=== PATIENT | male | born 1990 | race African-American/Black ===

== ENCOUNTER 2016-12-06 19:02 | Emergency (ER) | payer OTHER ==
--- NOTE | 2016-12-06 19:06 | PDOC ---
Rapid Medical Evaluation Medical Evaluation: 12/06/16 19:05 26 yo M c/o right sided sore throat x2d. Pt was given zithromax today. Took (2) tabs from [facility] today. Denies diff swallowing. Denies sob, congestion, co. Rapid strep ordered and sent.
[2016-12-06 19:07] VITALS: BP 153/81; PULSE 109; TEMP 99.3; BMI 33.5
--- NOTE | 2016-12-06 20:14 | PDOC ---
History of Present Illness - General Chief Complaint: Sore Throat Stated Complaint: COLD SYMPTOMS Time Seen by Provider: 12/06/16 19:31 History Source: Patient Exam Limitations: No Limitations - History of Present Illness Initial Comments: 12/06/16 20:14 CHIEF COMPLAINT: Throat pain HISTORY OF PRESENT ILLNESS: This is a 26 year old male with frequent episodes of strep pharyngitis who presents complaining of two days of throat pain, painful swallowing, chills, and muffled voice. He is able to swallow his own saliva. He denies difficulty breathing, but does feel that he is "going to choke " when laying flat. He was prescribed azithromycin and took the first dose today without improvement. V/s on arrival are notable for pulse of 109. REVIEW OF SYSTEMS: GENERAL/CONSTITUTIONAL: Chills, subjective fever. No weakness. No weight change. HEAD, EYES, EARS, NOSE AND THROAT: See HPI. CARDIOVASCULAR: No chest pain or palpitations. RESPIRATORY: No cough, wheezing, or shortness of breath. GASTROINTESTINAL: No nausea, vomiting, diarrhea or constipation. GENITOURINARY: No dysuria, frequency, or change in urination. MUSCULOSKELETAL: No joint or muscle swelling or pain. No neck or back pain. SKIN: No rash or easy bruising. NEUROLOGIC: No headache, vertigo, loss of consciousness, or loss of sensation. PSYCHIATRIC: No depression or anxiety. ENDOCRINE: No increased thirst. No abnormal weight change. HEMATOLOGIC/LYMPHATIC: No anemia, easy bleeding, or history of blood clots. ALLERGIC/IMMUNOLOGIC: No hives or skin allergy. No latex allergy. PHYSICAL EXAM: GENERAL: The patient is awake, alert, and fully oriented, in no acute distress. HEAD: Normal with no signs of trauma. ENT: Tonsils 4+ and erythematous, nearly touching. Uvula midline. Cervical adenopathy. Hot potato voice. No drooling or stridor. Pupils equal, round and reactive to light, extraocular movements intact, sclera anicteric, conjunctiva clear. Neck supple. LUNGS: Clear to auscultation bilaterally. Normal excursion. No respiratory distress or use of accessory muscles. CV: RRR, S1/S2, no MRG. Cap refill < 2 sec. ABDOMEN: Soft, non-distended, non-tender. EXTREMITIES: Normal range of motion, no edema. NEUROLOGICAL: Normal speech, normal gait. CN II-XII grossly intact. PSYCH: Normal mood, normal affect. SKIN: Warm, dry, normal turgor, no rashes or lesions noted. Past History - Past Medical History Allergies/Adverse Reactions: Allergies Allergy/AdvReac Type Severity Reaction Status Date / Time No Known Allergies Allergy Verified 12/06/16 19:06 Home Medications: Ambulatory Orders Clindamycin [Cleocin -] 300 mg PO Q6HPO #28 capsule 12/06/16 Gabapentin [Neurontin -] 100 mg PO Q8H 12/06/16 Ibuprofen [Motrin -] 600 mg PO QID #30 tablet 12/06/16 - Psycho/Social/Smoking Cessation Hx Suicidal Ideation: No Smoking History: Never smoked Information on smoking cessation initiated: No *Physical Exam - Vital Signs Last Vital Signs Temp Pulse Resp BP Pulse Ox 99.3 F 109 H 18 153/81 98 12/06/16 19:04 12/06/16 19:04 12/06/16 19:04 12/06/16 19:04 12/06/16 19:04 ED Treatment Course - LABORATORY CBC & Chemistry Diagram: 12/06/16 21:00 12/06/16 21:00 Medical Decision Making - Medical Decision Making 12/06/16 21:12 A/P: 26 year old male with pharyngitis; tonsils nearly touching, voice muffled. 1. Rapid strep is positive 2. Will place IV; give fluids, Decadron 10mg IVP, Toradol 30mg IVP, Clindamycin 600mg IVPB 3. CT soft tissue neck to r/o CHUTE TENDER 4. Re-assess 12/06/16 22:47 CT reviewed: prominent tonsils; no abscess or collection identified. Patient is feeling better and is phonating normally. Feels comfortable going home and following up with ENT. Return precautions reviewed. *DC/Admit/Observation/Transfer Diagnosis at time of Disposition: Strep pharyngitis - Discharge Dispostion Disposition: HOME Condition at time of disposition: Improved Admit: No - Prescriptions Prescriptions: Clindamycin [Cleocin -] 300 mg PO Q6HPO #28 capsule Ibuprofen [Motrin -] 600 mg PO QID #30 tablet - Referrals Referrals: Darius Martinez MD [Staff Physician] - Call tomorrow - Patient Instructions Printed Discharge Instructions: DI for Pharyngitis/Tonsillopharyngitis -- Adult Additional Instructions: -Rest and stay well-hydrated -Take ibuprofen as prescribed for pain and inflammation and clindamycin as prescribed for throat infection -Follow up with ENT as discussed -Return here for difficulty breathing, inability to swallow your own saliva, or any other concerning symptoms - Post Discharge Activity Work/School Note: Back to Work
[2016-12-06] MEDS ORDERED: DEXAMETHASONE SOD PHOSPHATE 10 MG/1 ML VIAL IVPUSH ONE (20:21)
[2016-12-06] MEDS ORDERED: SODIUM CHLORIDE 1,000 ML IV STA (20:21)
[2016-12-06] MEDS ORDERED: CLINDAMYCIN 600MG PREMIX IVPB 50 ML IVPB ONE (20:21)
[2016-12-06] MEDS ORDERED: KETOROLAC TROMETHAMINE 30 MG/1 ML VIAL IVPUSH ONE (20:21)
[2016-12-06] MEDS ORDERED: DEXAMETHASONE SOD PHOSPHATE 10 MG/1 ML VIAL ONE (20:39)
[2016-12-06] MEDS ORDERED: KETOROLAC TROMETHAMINE 30 MG/1 ML VIAL ONE (20:40)
[2016-12-06 21:09] LABS: BASOPHIL 0.2 % (0-2.0); EOSINOPHIL 0.4 % (0-4.5); MCH 26.6 pg (25.7-33.7); MCHC 31.9 g/dl (32.0-35.9); MEAN CELL VOLUME 83.3 fl (80-96); MEAN PLT VOLUME 9.3 fl (7.5-11.1); NEUTROPHILS 68.7 % (42.8-82.8); PLATELET COUNT 185 K/MM3 (134-434); RDW 14.2 % (11.9-15.9); WHITE BLOOD COUNT 11.6 K/mm3 (4.0-10.0)
[2016-12-06 21:38] LABS: CALCIUM 8.7 mg/dL (8.5-10.1); CREATININE 0.7 mg/dL (0.7-1.3)
== END 2016-12-06 23:00 | disposition home or self-care (01) ==
LOC: JERFT 19:02
PROC: 3E0337Z Introduction of Electrolytic and Water Balance Substance into Peripheral Vein, Percutaneous Approach (ICD-10-PCS; principal; 2016-12-06)
PROC: 3E03329 Introduction of Other Anti-infective into Peripheral Vein, Percutaneous Approach (ICD-10-PCS; 2016-12-06)
PROC: 3E0333Z Introduction of Anti-inflammatory into Peripheral Vein, Percutaneous Approach (ICD-10-PCS; 2016-12-06)
PROC: 3E0333Z Introduction of Anti-inflammatory into Peripheral Vein, Percutaneous Approach (ICD-10-PCS; 2016-12-06)
DX: J02.0 Streptococcal pharyngitis (principal); B95.0 Streptococcus, group A, as the cause of diseases classified elsewhere
CPT/HCPCS: 36415; 70491-TC; 80048; 85025; 87070; 87430; 99281-25

== ENCOUNTER 2018-12-08 03:02 | Emergency (ER) | payer SELFPAY ==
--- NOTE | 2018-12-08 03:16 | PDOC ---
History of Present Illness - General Stated Complaint: THOAT PAIN Time Seen by Provider: 12/08/18 03:16 History Source: Patient Exam Limitations: No Limitations - History of Present Illness Initial Comments: 12/08/18 03:55 Best Contact: PCP:Denies Pmhx: 0 Pshx: 0 Allergies: NKDA FH: 0 Social Hx: Cigarettes/ 0 Alcohol/ Social Drugs/ 0 28-year-old male presents to the ER complaining of a sore throat 3 days without fever, chills, nausea/vomiting, dizziness, lightheadedness, facial pains , rhinorrhea, nasal congestion, earaches, difficulty swallowing/eating, neck pain/stiffness, back pains, chest pain, shortness of breath, abdominal pains. Patient states he did not take anything for pain. There are no alleviating or exacerbating factors. Past History - Past Medical History Allergies/Adverse Reactions: Allergies Allergy/AdvReac Type Severity Reaction Status Date / Time No Known Allergies Allergy Verified 12/08/18 03:43 Home Medications: Ambulatory Orders NK [No Known Home Medication] 12/08/18 - Suicide/Smoking/Psychosocial Hx Smoking History: Never smoked Review of Systems - Review of Systems Able to Perform ROS?: Yes Comments:: 12/08/18 04:02 CONSTITUTIONAL: Absent: fever, chills, diaphoresis, generalized weakness, malaise, loss of appetite HEENT: +throat pain Absent: rhinorrhea, nasal congestion,throat swelling, difficulty swallowing, mouth swelling, ear pain, eye pain, visual Changes CARDIOVASCULAR: Absent: chest pain, loss of consciousness, palpitations, irregular heart rate, peripheral edema RESPIRATORY: Absent: cough, shortness of breath, dyspnea with exertion, orthopnea, wheezing, stridor, hemoptysis GASTROINTESTINAL: Absent: abdominal pain, abdominal distension, nausea, vomiting, diarrhea, constipation, melena, hematochezia GENITOURINARY: Absent: dysuria, frequency, urgency, hesitancy, hematuria, flank pain, genital pain MUSCULOSKELETAL: Absent: myalgia, arthralgia, joint swelling SKIN: Absent: rash, itching, pallor Is the patient limited Scottish proficient: No *Physical Exam - Physical Exam Comments: 12/08/18 04:04 GENERAL: Well developed, well nourished. Awake and alert. No acute distress. HEENT: B/L tonsillar erythema with exudates Normocephalic, atraumatic. PERRLA, EOMI. No conjunctival pallor. Sclera are non- icteric. Moist mucous membranes. Oropharynx is clear. NECK: Supple. Full ROM. No JVD. Carotid pulses 2+ and symmetric, without bruits. No thyromegaly. No lymphadenopathy. CARDIOVASCULAR: Regular rate and rhythm. No murmurs, rubs, or gallops. Distal pulses are 2+ and symmetric. PULMONARY: No evidence of respiratory distress. Lungs clear to auscultation bilaterally. No wheezing, rales or rhonchi. ABDOMINAL: Soft. Non-tender. Non-distended. No rebound or guarding. No organomegaly. Normoactive bowel sounds. MUSCULOSKELETAL Normal range of motion at all joints. No bony deformities or tenderness. No CVA tenderness. EXTREMITIES: No cyanosis. No clubbing. No edema. No calf tenderness. SKIN: Warm and dry. Normal capillary refill. No rashes. No jaundice. *DC/Admit/Observation/Transfer Diagnosis at time of Disposition: Strep pharyngitis - Discharge Dispostion Disposition: HOME Condition at time of disposition: Stable Decision to Admit order: No - Referrals Referrals: Loren Valdovinos MD [Primary Care Provider] - - Patient Instructions Printed Discharge Instructions: DI for Strep Throat Additional Instructions: Take Tylenol alternating with Motrin as needed for pain or fever Called with salt water Increase fluid intake You were given penicillin G 1.2 million units intramuscularly for your treatment of strep throat You will also given Decadron IM intramuscularly for the swelling Return back to the ER for severe/persistent or worsening symptoms - Post Discharge Activity
[2018-12-08] MEDS ORDERED: IBUPROFEN 400 MG TABLET (FP) PO ONE ×2 (03:26→03:32)
[2018-12-08 03:29] VITALS: BP 158/78; PULSE 70; TEMP 98; BMI 83.0
[2018-12-08] MEDS ORDERED: DEXAMETHASONE SOD PHOSPHATE 10 MG/1 ML VIAL IM ONE (04:04)
[2018-12-08] MEDS ORDERED: DEXAMETHASONE SOD PHOSPHATE 10 MG/1 ML VIAL ONE (04:11)
[2018-12-08] MEDS ORDERED: PENICILLIN G BENZATHINE 1,200,000 UNIT/2 ML PFS IM ONE ×2 (04:11→04:17)
== END 2018-12-08 04:22 | disposition home or self-care (01) ==
LOC: JER 03:02
DX: J02.0 Streptococcal pharyngitis (principal); B95.0 Streptococcus, group A, as the cause of diseases classified elsewhere
CPT/HCPCS: 87880; 99282-25; J1100

== ENCOUNTER 2019-07-19 10:28 | Emergency (ER) | payer SELFPAY ==
[2019-07-19 10:39] VITALS: BP 140/78; PULSE 101; TEMP 101.6; BMI 28.8
[2019-07-19] MEDS ORDERED: IBUPROFEN 600 MG TABLET (FP) PO ONE ×2 (11:02→11:08)
--- NOTE | 2019-07-19 11:09 | PDOC ---
History of Present Illness - General Chief Complaint: Sore Throat Stated Complaint: SORE THROAT Time Seen by Provider: 07/19/19 10:55 History Source: Patient Exam Limitations: No Limitations - History of Present Illness Initial Comments: 07/19/19 11:04 28 year old male with no significant medical or surgical history presents with reports of sorethroat x 2 days. Also reports pain with swallowing, fever and chills. Patient reports no headaches or bodyaches. Is this a multiple visit Asthma Patient?: No Timing/Duration: reports: other (2 days) Severity: reports: moderate Possible Cause: Yes: no prior episodes Modifying Factors: improves with: other Associated Symptoms: reports: fever/chills, sore throat. denies: dizziness, nasal congestion, nasal drainage Past History - Travel Traveled outside of the country in the last 30 days: No Close contact w/someone who was outside of country & ill: No - Past Medical History Allergies/Adverse Reactions: Allergies Allergy/AdvReac Type Severity Reaction Status Date / Time No Known Allergies Allergy Verified 12/08/18 03:43 Home Medications: Ambulatory Orders NK [No Known Home Medication] 12/08/18 COPD: No Other medical history: chronic sore throat - Immunization History Immunization Up to Date: No - Psycho Social/Smoking Cessation Hx Smoking History: Never smoked Have you smoked in the past 12 months: No Information on smoking cessation initiated: No Hx Alcohol Use: No Drug/Substance Use Hx: No Respiratory Specific PMHX - Complaint Specific PMHX Angina: No Bronchitis: No Pneumonia: No Pulmonary Embolus: No TB (Tuberculosis): No Review of Systems - Review of Systems Able to Perform ROS?: Yes Is the patient limited Sudanese proficient: No Constitutional: Yes: Fever, Loss of Appetite HEENTM: Yes: Throat Pain, Throat Swelling. No: Nose Pain, Nose Congestion Respiratory: No: Cough, Shortness of Breath Cardiac (ROS): No: Lightheadedness, Palpitations ABD/GI: No: Constipated, Diarrhea, Nausea, Poor Appetite, Vomiting, Indigestion : No: Dysuria, Hematuria, Incontinence Musculoskeletal: No: Back Pain, Muscle Pain, Muscle Weakness, Neck Pain Integumentary: No: Flushing, Lesions Neurological: No: Paresthesia, Tingling, Tremors Psychiatric: No: Stressors, Mood Swings *Physical Exam - Vital Signs Last Vital Signs Temp Pulse Resp BP Pulse Ox 101.6 F H 101 H 20 140/78 97 07/19/19 10:31 07/19/19 10:31 07/19/19 10:31 07/19/19 10:31 07/19/19 10:31 - Physical Exam General Appearance: Yes: Nourished, Appropriately Dressed HEENT: positive: Pharyngeal Erythema, Tonsillar Erythema. negative: Tonsillar Exudate, Nasal Congestion, Rhinorrhea, Sinus Tenderness Neck: positive: Supple. 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 Reports pain with swallowing, fever and chills. pharyngitis -rapid strep -antipyretic 07/19/19 11:46 + strep bicillin la im given d/c home Discharge - Discharge Information Problems reviewed: Yes Clinical Impression/Diagnosis: Strep pharyngitis Condition: Stable Disposition: HOME - Admission No - Follow up/Referral Referrals: ON STAFF,NOT [Primary Care Provider] - - Patient Discharge Instructions Patient Printed Discharge Instructions: Strep Throat Additional Instructions: Please do not share utensils, no kissing . Drink plenty fluids Gargle with warm salt water Return for difficulty swallowing or breathing - Post Discharge Activity Work/Back to School Note: Back to Work
[2019-07-19] MEDS ORDERED: PENICILLIN G BENZATHINE 1,200,000 UNIT/2 ML PFS IM ONE ×2 (11:39→11:50)
== END 2019-07-19 12:07 | disposition home or self-care (01) ==
LOC: JER 10:28
PROC: 3E033NZ Introduction of Analgesics, Hypnotics, Sedatives into Peripheral Vein, Percutaneous Approach (ICD-10-PCS; principal; 2019-07-19)
PROC: 3E0333Z Introduction of Anti-inflammatory into Peripheral Vein, Percutaneous Approach (ICD-10-PCS; 2019-07-19)
PROC: 3E0333Z Introduction of Anti-inflammatory into Peripheral Vein, Percutaneous Approach (ICD-10-PCS; 2019-07-19)
DX: J02.0 Streptococcal pharyngitis (principal); B95.0 Streptococcus, group A, as the cause of diseases classified elsewhere
CPT/HCPCS: 87880; 99281-25

== ENCOUNTER 2019-07-20 01:04 | Emergency (ER) | payer SELFPAY ==
[2019-07-20 01:12] VITALS: BMI 38.5
[2019-07-20] MEDS ORDERED: LIDOCAINE VISCOUS 2% ORAL/TOP 100 ML BOTTLE MM ONE (01:36)
[2019-07-20] MEDS ORDERED: DEXAMETHASONE SOD PHOSPHATE 10 MG/1 ML VIAL IVPUSH ONE (01:36)
[2019-07-20] MEDS ORDERED: KETOROLAC TROMETHAMINE 15 MG/ML VIAL IVPUSH ONE (01:36)
[2019-07-20] MEDS ORDERED: SODIUM CHLORIDE 0.9% 500 ML INFUS.BAG IV ONE (01:36)
[2019-07-20] MEDS ORDERED: DEXAMETHASONE SOD PHOSPHATE 10 MG/1 ML VIAL ONE (02:09)
[2019-07-20] MEDS ORDERED: LIDOCAINE VISCOUS 2% ORAL/TOP 20 ML UNIT-DOSE CUP ONE (02:09)
[2019-07-20] MEDS ORDERED: KETOROLAC TROMETHAMINE 15 MG/ML VIAL ONE (02:10)
--- NOTE | 2019-07-20 02:20 | PDOC ---
Documentation entered by Cindy Rodriguez SCRIBE, acting as scribe for Magno Dueñas MD. Magno Dueñas MD: This documentation has been prepared by the kikaibe, Cindy Rodriguez SCRIBE, under my direction and personally reviewed by me in its entirety. I confirm that the documentation accurately reflects all work, treatment, procedures, and medical decision making performed by me. Attending Attestation - Resident Resident Name: Kenisha Molina - ED Attending Attestation I have performed the following: I have examined & evaluated the patient, The case was reviewed & discussed with the resident, I agree w/resident's findings & plan, Exceptions are as noted - HPI HPI: 07/20/19 02:21 28 M with recently diagnosed strep pharyngitis yesterday, presenting today with sore throat and difficulty swallowing. Pt states that he has severe throat pain that makes it hard to swallow anything. Pt denies difficulty tolerating secretions, no difficulty breathing. Endorses fever at home. Pt was given IM penicillin G yesterday. - Physicial Exam PE: 07/20/19 02:23 GENERAL: Awake, alert, and fully oriented, in no acute distress. HEAD: No signs of trauma EYES: PERRLA, EOMI, sclera anicteric, conjunctiva clear ENT: + bilateral enlarged tonsils + exudates, no abscess NECK: Nontender, no stepoffs, Normal ROM, supple, no lymphadenopathy, JVD, or masses LUNGS: Breath sounds equal, clear to auscultation bilaterally. No wheezes, and no crackles HEART: Regular rate and rhythm, normal S1 and S2, no murmurs, rubs or gallops ABDOMEN: Soft, nontender, normoactive bowel sounds. No guarding, no rebound. No masses EXTREMITIES: Normal range of motion, no edema. No clubbing or cyanosis. No cords, erythema, or tenderness NEUROLOGICAL: Cranial nerves II through XII intact. 5/5 strength and sensation in all extremities, Normal speech, normal gait, normal cerebellar function SKIN: Warm, Dry, normal turgor, no rashes or lesions noted. - Medical Decision Making 07/20/19 02:32 28 M with strep pharyngitis, presenting to ED with odynophagia. No evidence of ACCOUNTING SUPPORT SPECIALIST on exam. - Steroids, NSAIDs, viscous lidocaine - Reassess 07/20/19 04:04 Pt feels much better after meds Will recheck vitals, PO challenge 07/20/19 05:32 Pt tolerating PO fluids Vitals now normalized, HR 80s Pt is well appearing, with normal vitals. Clinically stable for DC at this time. I discussed the physical exam findings, ancillary test results and final diagnoses with the patient. I answered all of the patient's questions. The patient was satisfied with the care received and felt comfortable with the discharge plan and treatment plan. The patient agrees to follow up with the primary care physician within 24-72 hours.
--- NOTE | 2019-07-20 04:16 | PDOC ---
History of Present Illness - General Chief Complaint: Dysphagia Stated Complaint: DIFFICULTY SWALLOWING Time Seen by Provider: 07/20/19 01:37 - History of Present Illness Initial Comments: 28 year old healthy male presenting with hoarse voice and odynophagia for the past two days. He presented to our ED yesterday and was given IM antibiotics ( penicillin) for strep throat diagnosis and sent home. He states that he still feels warm today and his voice as worsened. IN fact he was barely audible on our initial interview. He has been able to swallow some ibuprofen at home. Denies any nausea, vomiting, diarrhea, or other symptoms. Past History - Past Medical History Allergies/Adverse Reactions: Allergies Allergy/AdvReac Type Severity Reaction Status Date / Time No Known Allergies Allergy Verified 07/20/19 01:12 Home Medications: Ambulatory Orders Mag Hydrox/Alh/Smc/Dpha/Lido [Magic Mouthwash *Sjr Formula*] 240 ml MM BID #1 bottle 07/20/19 COPD: No - Immunization History Immunization Up to Date: No - Psycho Social/Smoking Cessation Hx Smoking History: Never smoked Have you smoked in the past 12 months: No Hx Alcohol Use: No Drug/Substance Use Hx: No Review of Systems - Review of Systems Constitutional: Yes: Chills, Fever. No: Diaphoresis, Loss of Appetite HEENTM: Yes: Throat Pain. No: Eye Pain, Blurred Vision, Tearing, Mouth Pain Respiratory: No: Cough, Orthopnea, Shortness of Breath, Productive cough Cardiac (ROS): No: Chest Pain, Irregular Heart Rate, Lightheadedness, Palpitations ABD/GI: No: Diarrhea, Nausea, Vomiting : No: Burning, Dysuria, Discharge Musculoskeletal: No: Back Pain, Joint Pain Integumentary: No: Bruising, Erythema, Flushing Neurological: No: Headache, Numbness, Paresthesia Endocrine: No: Increased Thirst, Increased Urine Hematologic/Lymphatic: No: Anemia, Blood Clots *Physical Exam - Vital Signs Last Vital Signs Temp Pulse Resp BP Pulse Ox 101.9 F H 106 H 18 101/68 97 07/20/19 01:09 07/20/19 01:09 07/20/19 01:09 07/20/19 01:09 07/20/19 01:09 - Physical Exam General Appearance: Yes: Nourished, Appropriately Dressed. No: Apparent Distress HEENT: positive: EOMI, SAMEER. 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 negative: Tender, Rigid Respiratory/Chest: positive: Lungs Clear, Normal Breath Sounds. negative: Chest Tender, Respiratory Distress, Accessory Muscle Use Cardiovascular: positive: Regular Rhythm, Tachycardia. negative: Regular Rate Gastrointestinal/Abdominal: positive: Normal Bowel Sounds, Flat, Soft. negative : Tender Musculoskeletal: positive: Normal Inspection. negative: Decreased Range of Motion Extremity: positive: Normal Capillary Refill, Normal Inspection, Normal Range of Motion. negative: Tender Integumentary: positive: Normal Color, Dry, Warm Neurologic: positive: Fully Oriented, Alert, Normal Mood/Affect, Normal Response , Motor Strength 5/5 ED Treatment Course - Medications Given in the ED: ED Medications Discontinued Medications Generic Name Dose Route Start Last Admin Trade Name Freq PRN Reason Stop Dose Admin Dexamethasone Sodium Phosphate 10 mg 07/20/19 01:36 07/20/19 02:40 Decadron Injection - IVPUSH 07/20/19 01:37 10 mg ONCE ONE Administration Ketorolac Tromethamine 15 mg 07/20/19 01:36 07/20/19 02:41 Toradol Injection - IVPUSH 07/20/19 01:37 15 mg ONCE ONE Administration Lidocaine HCl 15 ml 07/20/19 01:36 07/20/19 02:41 Xylocaine 2% Viscous MM 07/20/19 01:37 15 ml ONCE ONE Administration Sodium Chloride 1,000 ml 07/20/19 01:36 07/20/19 02:40 Normal Saline - IV 07/20/19 01:37 1,000 ml ONCE ONE Administration Medical Decision Making - Medical Decision Making 38 year old with recent diagnosis of strep throat presenting for continuing vocal hoarseness and odynophagia. He was also febrile and tachycardic here. Given 1 L NS, toradol 15 IV, decadron 10, acetaminophen 1 G, and magic mouthwash (lidocaine swish and swallow) with excellent improvement of his symptoms. Patient with improved VS (NH 86 and afebrile) so he was discharged with magic mouthwash prescription and ibuprofen use instructions. There was no need for further antibiosis. Discharge - Discharge Information Problems reviewed: Yes Clinical Impression/Diagnosis: Strep pharyngitis Condition: Improved Disposition: HOME - Admission No - Additional Discharge Information Prescriptions: Mag Hydrox/Alh/Smc/Dpha/Lido [Magic Mouthwash *Sjr Formula*] 240 ml MM BID #1 bottle - Follow up/Referral - Patient Discharge Instructions Patient Printed Discharge Instructions: DI for Strep Throat Additional Instructions: Please use the magic mouthwash up to twice day for your throat pain and ibuprofen every 4-6 hours for pain or fever. Do not swallow thew mouthwash, please wish it and spit it out. Please return to the ED if you have trouble breathing, inability to swallow water or liquids. Please avoid very hot, very cold, or hard foods for a few days. - Post Discharge Activity Work/Back to School Note: Back to Work
[2019-07-20] MEDS ORDERED: ACETAMINOPHEN 650 MG/20.3 ML ORAL SOLUTION (CUPS) PO ONE (04:53)
[2019-07-20] MEDS ORDERED: ACETAMINOPHEN INJECTION 100 ML IVPB ONE (04:54)
[2019-07-20] MEDS ORDERED: ACETAMINOPHEN 1000 MG/100 ML VIAL (NON FORMULARY) IVPB ONE (04:54)
[2019-07-20 05:37] VITALS: PULSE 85
[2019-07-20 05:41] VITALS: BP 120/61; TEMP 99.6
== END 2019-07-20 05:42 | disposition home or self-care (01) ==
LOC: JER 01:04
PROC: 3E033NZ Introduction of Analgesics, Hypnotics, Sedatives into Peripheral Vein, Percutaneous Approach (ICD-10-PCS; principal; 2019-07-20)
PROC: 3E0333Z Introduction of Anti-inflammatory into Peripheral Vein, Percutaneous Approach (ICD-10-PCS; 2019-07-20)
PROC: 3E0333Z Introduction of Anti-inflammatory into Peripheral Vein, Percutaneous Approach (ICD-10-PCS; 2019-07-20)
DX: J02.0 Streptococcal pharyngitis (principal); B95.0 Streptococcus, group A, as the cause of diseases classified elsewhere
CPT/HCPCS: 99282-25; J0131; J1100

== ENCOUNTER 2019-08-27 10:05 | Emergency (ER) | payer SELFPAY ==
[2019-08-27 10:09] VITALS: BP 136/75; PULSE 97; TEMP 97.9; BMI 33.5
--- NOTE | 2019-08-27 10:35 | PDOC ---
History of Present Illness - General Chief Complaint: Sore Throat Stated Complaint: SORE THROAT / COUGH Time Seen by Provider: 08/27/19 10:07 - History of Present Illness Timing/Duration: reports: other Associated Symptoms: reports: cough, sore throat Past History - Past Medical History Allergies/Adverse Reactions: Allergies Allergy/AdvReac Type Severity Reaction Status Date / Time No Known Allergies Allergy Verified 08/27/19 10:09 Home Medications: Ambulatory Orders Amoxicillin - [Amoxicillin 500mg Capsule -] 500 mg PO BID #14 capsule 08/27/19 Zolpidem Tartrate [Ambien] 10 mg PO HS 08/27/19 COPD: No - Immunization History Immunization Up to Date: No - Psycho Social/Smoking Cessation Hx Smoking History: Never smoked Have you smoked in the past 12 months: No Information on smoking cessation initiated: No Hx Alcohol Use: No Drug/Substance Use Hx: No Respiratory Specific PMHX - Complaint Specific PMHX Hx Bronchitis: No Hx Pneumonia: No Hx Pulmonary Embolus: No Hx TB (Tuberculosis): No Review of Systems - Review of Systems Constitutional: No: Chills, Fever HEENTM: Yes: Throat Pain. No: Ear Pain Respiratory: Yes: Cough. No: Shortness of Breath *Physical Exam - Vital Signs Last Vital Signs Temp Pulse Resp BP Pulse Ox 97.9 F 97 H 19 136/75 97 08/27/19 10:07 08/27/19 10:07 08/27/19 10:07 08/27/19 10:07 08/27/19 10:07 - Physical Exam General Appearance: Yes: Appropriately Dressed. No: Apparent Distress HEENT: positive: Normal ENT Inspection, Normal Voice, TMs Normal, Pharynx Normal. negative: Scleral Icterus (R), Scleral Icterus (L) Neck: positive: Supple. 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 No fever or chills see exam Strep pharyngitis Exam unremarkable Dc w/ abx, otc med prn pain Discharge - Discharge Information Problems reviewed: Yes Clinical Impression/Diagnosis: Strep pharyngitis Condition: Good Disposition: HOME - Additional Discharge Information Prescriptions: Amoxicillin - [Amoxicillin 500mg Capsule -] 500 mg PO BID #14 capsule - Follow up/Referral - Patient Discharge Instructions Patient Printed Discharge Instructions: DI for Strep Throat - Post Discharge Activity Work/Back to School Note: Back to Work
== END 2019-08-27 11:06 | disposition home or self-care (01) ==
LOC: JERFT 10:05
DX: J02.0 Streptococcal pharyngitis (principal)
CPT/HCPCS: 87880; 99281-25

== ENCOUNTER 2021-09-24 12:59 | Emergency (ER) | payer BC ==
[2021-09-24 13:18] VITALS: TEMP 98.4; BMI 39.0
[2021-09-24] MEDS ORDERED: BAMLANIVIMAB 700 MG, ETESEVIMAB 1,400 MG in SODIUM CHLORIDE 100 ML IVPB ONE (13:39)
[2021-09-24 16:54] VITALS: BP 135/73; PULSE 84
== END 2021-09-24 16:54 | disposition home or self-care (01) ==
LOC: JCOVINFU 12:59
PROC: 3E033GC Introduction of Other Therapeutic Substance into Peripheral Vein, Percutaneous Approach (ICD-10-PCS; principal; 2021-09-24)
DX: U07.1 COVID-19 (principal)
CPT/HCPCS: 99284-25; Q0245

== ENCOUNTER 2022-04-04 01:42 | Emergency (ER) | payer BC ==
[2022-04-04 01:57] VITALS: BMI 34.8
[2022-04-04] MEDS ORDERED: IBUPROFEN 400 MG TABLET (FP) PO ONE ×2 (02:24→02:42)
[2022-04-04] MEDS ORDERED: ACETAMINOPHEN 1000 MG/100 ML BAG IVPB ONE (03:50)
[2022-04-04] MEDS ORDERED: BENZOCAINE/MENTHOL 1 EACH LOZENGE MM ONE (03:51)
[2022-04-04] MEDS ORDERED: ACETAMINOPHEN INJECTION 100 ML IVPB ONE (04:30)
[2022-04-04 05:20] LABS: ALBUMIN 3.7 g/dl (3.4-5.0); BASO % 0.3 % (0-2.0); CALCIUM 8.4 mg/dL (8.5-10.1); HEMATOCRIT 37.2 % (35.4-49); HEMOGLOBIN 12.1 GM/dL (11.7-16.9); LYMPH % 12.3 % (8-40); MCH 26.7 pg (25.7-33.7); MCHC 32.6 g/dl (32.0-35.9); MEAN CELL VOLUME 81.8 fl (80-96); MEAN PLT VOLUME 9.8 fl (7.5-11.1); MONO % 10.6 % (3.8-10.2); NEUT % 76.8 % (42.8-82.8); PLATELET COUNT 201 10^3/uL (134-434); RBC 4.55 M/mm3 (4.00-5.60); RDW 13.8 % (11.9-15.9); WHITE BLOOD COUNT 18.4 K/mm3 (4.0-10.0)
[2022-04-04 05:21] LABS: BLOOD UREA NITROGEN 16.1 mg/dL (7-18)
[2022-04-04 05:23] LABS: CREATININE 0.9 mg/dL (0.55-1.3)
[2022-04-04 05:25] LABS: BILIRUBIN,TOTAL 0.5 mg/dL (0.2-1); TOT PROT 7.2 g/dl (6.4-8.2)
[2022-04-04 05:28] LABS: N-TERMINAL BNP 63.2 pg/ml (5-125)
[2022-04-04] MEDS ORDERED: AMOXICILLIN 500 MG CAPSULE (FP) PO ONE ×2 (06:32→09:34)
[2022-04-04] MEDS ORDERED: AMOXICILLIN 500 MG CAPSULE (FP) ONE ×2 (07:09→10:06)
[2022-04-04 07:31] LABS: INR 1.1 (0.83-1.09); PROTHROMBIN TIME (PATIENT) 12.7 SEC (9.7-13.0)
[2022-04-04 07:33] LABS: ACTIVATED PTT 28.3 SECONDS (25.2-36.5)
[2022-04-04 09:31] VITALS: BP 117/59; PULSE 72; TEMP 98
[2022-04-04] MEDS ORDERED: AZITHROMYCIN 250 MG TABLET PO ONE (09:36)
[2022-04-04] MEDS ORDERED: AZITHROMYCIN 250 MG TABLET ONE (10:06)
== END 2022-04-04 10:15 | disposition home or self-care (01) ==
LOC: JER 01:42
PROC: 3E0333Z Introduction of Anti-inflammatory into Peripheral Vein, Percutaneous Approach (ICD-10-PCS; principal; 2022-04-04)
DX: U07.1 COVID-19 (principal); J06.9 Acute upper respiratory infection, unspecified
CPT/HCPCS: 0241U-QW; 36415; 71045-TC-FY; 71275-TC; 80053; 83880; 84484; 85025; 85379; 85610; 85730; 87651; 93005; 93010; 99285-25; Q9967

== ENCOUNTER 2022-12-18 22:15 | Emergency (ER) | payer BC ==
[2022-12-18 22:24] VITALS: BP 148/83; RESP 20; BMI 42.4
[2022-12-18] MEDS ORDERED: DEXAMETHASONE SOD PHOSPHATE 10 MG/1 ML VIAL IM ONE (23:19)
[2022-12-18] MEDS ORDERED: IBUPROFEN 400 MG TABLET (FP) PO ONE (23:19)
[2022-12-18] MEDS ORDERED: AMOX TR/POT CLAV 875MG/125MG TABLETS (FP) PO ONE (23:46)
[2022-12-19] MEDS ORDERED: IBUPROFEN 400 MG TABLET (FP) PO ONE (00:08)
[2022-12-19] MEDS ORDERED: DEXAMETHASONE SOD PHOSPHATE 10 MG/1 ML VIAL ONE (00:08)
[2022-12-19] MEDS ORDERED: AMOX TR/POT CLAV 875MG/125MG TABLETS (FP) ONE (00:08)
[2022-12-19 00:29] VITALS: PULSE 100; TEMP 100.6
== END 2022-12-19 00:45 | disposition home or self-care (01) ==
LOC: JER 22:15
PROC: 3E023GC Introduction of Other Therapeutic Substance into Muscle, Percutaneous Approach (ICD-10-PCS; principal; 2022-12-18)
DX: J02.0 Streptococcal pharyngitis (principal); Z20.822 Contact with and (suspected) exposure to COVID-19
CPT/HCPCS: 0241U-QW; 87070; 87651; 99284-25; J1100

== ENCOUNTER 2023-06-17 11:27 | Emergency (ER) | payer BC ==
[2023-06-17 11:32] VITALS: RESP 18; BMI 39.0
[2023-06-17] MEDS ORDERED: ALBUTEROL SO4 2.5/IPRATROPIUM 0.5 INH SOL 3 ML VIAL.NEB. NEB ONE (12:58)
[2023-06-17] MEDS ORDERED: ALBUTEROL SO4 2.5/IPRATROPIUM 0.5 INH SOL 3 ML VIAL.NEB. NEB SCH (13:00)
[2023-06-17 13:28] LABS: BASO % 0.7 % (0-2.0); EOS % 1.4 % (0-4.5); HEMATOCRIT 42.3 % (35.4-49); HEMOGLOBIN 13.4 GM/dL (11.7-16.9); LYMPH % 42.1 % (8-40); MCH 26.7 pg (25.7-33.7); MCHC 31.7 g/dl (32.0-35.9); MEAN CELL VOLUME 84.2 fl (80-96); MEAN PLT VOLUME 9.8 fl (7.5-11.1); MONO % 12.4 % (3.8-10.2); NEUT % 43.4 % (42.8-82.8); PLATELET COUNT 231 10^3/uL (134-434); RBC 5.02 M/mm3 (4.00-5.60); RDW 14.2 % (11.9-15.9); WHITE BLOOD COUNT 6.4 K/mm3 (4.0-10.0)
[2023-06-17] MEDS ORDERED: FAMOTIDINE 20 MG/50 ML IVPB 20 MG in PREMIX 50 IVPB ONE (13:31)
[2023-06-17] MEDS ORDERED: KETOROLAC TROMETHAMINE 30 MG/1 ML VIAL IVPUSH ONE (13:31)
[2023-06-17] MEDS ORDERED: MAG HYDROX/AL HYDROX/SIMETH -MYLANTA- ORAL SUSPENSION PO ONE (13:31)
[2023-06-17] MEDS ORDERED: FAMOTIDINE 20 MG/50 ML IVPB 20 MG/50 ML MG IVPB ONE (13:35)
[2023-06-17] MEDS ORDERED: KETOROLAC TROMETHAMINE 30 MG/1 ML VIAL ONE (13:35)
[2023-06-17] MEDS ORDERED: MAG HYDROX/AL HYDROX/SIMETH 30 ML UNIT-DOSE CUP ONE (13:35)
[2023-06-17 13:51] LABS: POTASSIUM 4.6 mmol/L (3.5-5.1)
[2023-06-17 13:53] LABS: ALBUMIN 4.2 g/dl (3.4-5.0); CALCIUM 8.8 mg/dL (8.5-10.1)
[2023-06-17 13:54] LABS: BLOOD UREA NITROGEN 13.8 mg/dL (7-18)
[2023-06-17 13:57] LABS: CREATININE 0.8 mg/dL (0.55-1.3)
[2023-06-17 13:58] LABS: BILIRUBIN,TOTAL 0.4 mg/dL (0.2-1); TOT PROT 7.9 g/dl (6.4-8.2)
[2023-06-17 14:56] VITALS: BP 115/82; PULSE 76; TEMP 98.2
== END 2023-06-17 14:58 | disposition home or self-care (01) ==
LOC: JERFT 11:27 → JER 11:27 → JERFT 14:58
PROC: 3E033GC Introduction of Other Therapeutic Substance into Peripheral Vein, Percutaneous Approach (ICD-10-PCS; principal; 2023-06-17)
PROC: 3E0333Z Introduction of Anti-inflammatory into Peripheral Vein, Percutaneous Approach (ICD-10-PCS; 2023-06-17)
PROC: 3E0F7GC Introduction of Other Therapeutic Substance into Respiratory Tract, Via Natural or Artificial Opening (ICD-10-PCS; 2023-06-17)
DX: R06.02 Shortness of breath (principal); R07.89 Other chest pain; Z20.822 Contact with and (suspected) exposure to COVID-19
CPT/HCPCS: 0241U-QW; 36415; 71045-TC-FY; 80053; 84484; 85025; 93005; 93010; 99285-25